=== PATIENT | male | born 1940 | race Caucasian/White ===

== ENCOUNTER 2020-10-03 14:58 | Inpatient (IN) ==
[2020-10-03] MEDS ORDERED: Calcium Gluconate 1,000 MG/10 ML VIAL IVP STA (15:01)
[2020-10-03] MEDS ORDERED: Albuterol 2.5 MG/3 ML NEBULIZER ONE (15:01)
[2020-10-03] MEDS ORDERED: Albuterol 2.5 MG/3 ML NEBULIZER IH ONE (15:02)
[2020-10-03] MEDS ORDERED: Ondansetron 4 MG/2 ML VIAL IVP ONE (15:25)
[2020-10-03] MEDS ORDERED: Calcium Gluconate 1gm/50mL BAG IVPB ONE (15:32)
[2020-10-03 15:55] LABS: Basophils % 0.4 %; Eosinophils # 0.3 K/mcL (0.0-0.6); Eosinophils % 2.4 %; Hematocrit 37.4 % (37.5-50.1); Hemoglobin 12.6 g/dL (12.9-16.9); Immature Granulocytes % 0.7 % (0-4); Lymphocytes # 1.3 K/mcL (0.6-4.6); Lymphocytes % 11.6 %; Mean Corpuscular HGB Conc 33.7 g/dL (31.6-35.5); Mean Corpuscular Hemoglobin 32.4 pg (28.0-33.3); Mean Corpuscular Volume 96.1 fL (83.0-100.0); Mean Platelet Volume 10.5 fL (9.4-12.4); Monocytes # 0.6 K/mcL (0.0-1.3); Neutrophils # 8.5 K/mcL (1.6-8.9); Platelet Count 174 K/mcL (140-400); Red Blood Count 3.89 M/mcL (4.19-5.50); Segmented Neutrophils % 78.9 %; White Blood Count 10.7 K/mcL (4.3-11.1)
[2020-10-03 16:11] LABS: BUN/Creatinine Ratio 15 (6-26); Blood Urea Nitrogen 36 mg/dL (8-23); Calcium 9.6 mg/dL (8.6-10.3); Carbon Dioxide 28 mEq/L (23-29); Chloride 105 mEq/L (98-107); Glucose 136 mg/dL (70-105); INR 1.2; Magnesium 1.9 mg/dL (1.6-2.6); Osmolality,Calculated 300 (280-300); Potassium 4.6 mEq/L (3.5-5.1); Prothrombin Time 13.4 Seconds (9.4-12.1); Sodium 140 mEq/L (136-145); Troponin I < 0.03 ng/mL (< 0.04); eGFR For African Americans 31 (> 60); eGFR For Non-African Americans 26 (> 60)
[2020-10-03] MEDS ORDERED: 0.9 % Sodium Chloride 1,000 ML IVC ONE (16:15)
[2020-10-03] MEDS ORDERED: Naloxone 0.4 MG/ML INJ IVP PRN (17:15)
[2020-10-03] MEDS ORDERED: Ondansetron 4 MG/2 ML VIAL IVP PRN (17:15)
[2020-10-03] MEDS ORDERED: Acetaminophen 325 MG TABLET PO PRN (17:15)
[2020-10-03 19:47] LABS: Hematocrit 36.3 % (37.5-50.1)
[2020-10-03 22:47] LABS: Hemoglobin 11.3 g/dL (12.9-16.9)
[2020-10-04 04:27] LABS: INR 1.2; Prothrombin Time 13.5 Seconds (9.4-12.1)
[2020-10-04 04:30] LABS: Activated Partial Thrombo Time 25.4 Seconds (26.0-36.0)
[2020-10-04 04:39] LABS: % Iron Saturation 31 % (20-55); Iron 55 mcg/dL (65-175); Transferrin 126 mg/dL (203-362)
[2020-10-04 04:46] LABS: Calcium 8.8 mg/dL (8.6-10.3); Chol/HDL Ratio 2.7 (0-4.9); Potassium 3.8 mEq/L (3.5-5.1)
[2020-10-04 04:51] LABS: Hematocrit 33.4 % (37.5-50.1); Mean Corpuscular HGB Conc 32.9 g/dL (31.6-35.5); Mean Corpuscular Hemoglobin 31.3 pg (28.0-33.3); Mean Corpuscular Volume 95.2 fL (83.0-100.0); Mean Platelet Volume 10.6 fL (9.4-12.4); Platelet Count 151 K/mcL (140-400); Red Blood Count 3.51 M/mcL (4.19-5.50); Red Cell Distribution Width 12.8 % (11.5-14.5); White Blood Count 8.7 K/mcL (4.3-11.1)
[2020-10-04 04:56] LABS: Ferritin 121 ng/mL (20-250)
[2020-10-04] MEDS ORDERED: *HR* Atropine Sulfate 1 MG/10 ML SYRINGE IVP PRN (09:31)
[2020-10-04] MEDS ORDERED: Perflutren Lipid Microsphere 1.3 ML in 0.9 % Sodium Chloride 8.7 ML IVP PRN (11:29)
[2020-10-04] MEDS ORDERED: amLODIPine 5 MG TABLET PO SCH (11:45)
[2020-10-04] MEDS: Isosorbide MONOnitrate (24 HR) 60 MG TAB.ER.24H PO SCH (13:17)
[2020-10-04] MEDS: hydrALAZINE 25 MG TABLET PO SCH ×3 (13:17→23:39)
[2020-10-04] MEDS: Aspirin Enteric Coated 81 MG Tablet PO SCH (13:17)
[2020-10-04] MEDS: Cholecalciferol (D-3) 1,000 UNIT (25MCG) TABLET PO SCH (20:10)
[2020-10-05 02:55] LABS: Hematocrit 33.2 % (37.5-50.1); Hemoglobin 11.4 g/dL (12.9-16.9); Mean Corpuscular HGB Conc 34.3 g/dL (31.6-35.5); Mean Corpuscular Hemoglobin 32.5 pg (28.0-33.3); Mean Corpuscular Volume 94.6 fL (83.0-100.0); Mean Platelet Volume 10.7 fL (9.4-12.4); Platelet Count 150 K/mcL (140-400); Red Blood Count 3.51 M/mcL (4.19-5.50); Red Cell Distribution Width 12.8 % (11.5-14.5); White Blood Count 8.6 K/mcL (4.3-11.1)
[2020-10-05 03:10] LABS: Calcium 8.4 mg/dL (8.6-10.3); Potassium 3.7 mEq/L (3.5-5.1)
[2020-10-05 03:12] LABS: Magnesium 1.6 mg/dL (1.6-2.6)
[2020-10-05 03:40] LABS: Folate 16.9 ng/mL (3.0-16.0)
[2020-10-05] MEDS: Isosorbide MONOnitrate (24 HR) 60 MG TAB.ER.24H PO SCH (08:09)
[2020-10-05] MEDS: hydrALAZINE 25 MG TABLET PO SCH ×2 (08:09→16:22)
[2020-10-05] MEDS: Cholecalciferol (D-3) 1,000 UNIT (25MCG) TABLET PO SCH ×2 (08:09→21:11)
[2020-10-05] MEDS: Aspirin Enteric Coated 81 MG Tablet PO SCH (08:09)
[2020-10-05] MEDS: NIFEdipine XL (24 HR) 60 MG TAB.ER.24 PO SCH (08:09)
[2020-10-05 12:40] LABS: Bilirubin,Urine Negative (Negative); Blood,Urine Negative (Negative); Clarity,Urine Clear (Clear); Color,Urine Light-Yellow (Yellow); Glucose,Urine (UA) Normal (Normal); Ketones,Urine Negative (Negative); Leukocyte Esterase,Urine Negative (Negative); Nitrite,Urine Negative (Negative); Protein,Urine Negative (Neg-Trace); Specific Gravity,Urine 1.016 (1.010-1.025); Urobilinogen,Urine Normal (Normal)
[2020-10-05 12:45] LABS: Protein/Creatinine Ratio,Urine 0.08 mg/mg (0.00-0.20)
[2020-10-05] MEDS: Cyanocobalamin (B-12) 1,000 MCG TABLET PO SCH (18:02)
[2020-10-05] MEDS: *HR* Heparin 5,000 UNIT/ML VIAL SQ SCH (18:02)
[2020-10-06] MEDS: hydrALAZINE 25 MG TABLET PO SCH ×2 (00:25→08:41)
[2020-10-06] MEDS: *HR* Heparin 5,000 UNIT/ML VIAL SQ SCH (05:22)
[2020-10-06 05:24] LABS: Hematocrit 36.4 % (37.5-50.1); Hemoglobin 12.6 g/dL (12.9-16.9); Mean Corpuscular HGB Conc 34.6 g/dL (31.6-35.5); Mean Corpuscular Hemoglobin 32.1 pg (28.0-33.3); Mean Corpuscular Volume 92.6 fL (83.0-100.0); Platelet Count 171 K/mcL (140-400); Red Blood Count 3.93 M/mcL (4.19-5.50); Red Cell Distribution Width 12.4 % (11.5-14.5); White Blood Count 7.3 K/mcL (4.3-11.1)
[2020-10-06 05:38] LABS: Calcium 8.7 mg/dL (8.6-10.3); Potassium 3.8 mEq/L (3.5-5.1)
[2020-10-06 05:41] LABS: Complement C3 114 mg/dL (87-200); Rheumatoid Factor < 10 IU/mL (Less than 14)
[2020-10-06] MEDS: Cholecalciferol (D-3) 1,000 UNIT (25MCG) TABLET PO SCH (08:41)
[2020-10-06] MEDS: Isosorbide MONOnitrate (24 HR) 60 MG TAB.ER.24H PO SCH (08:41)
[2020-10-06] MEDS: Cyanocobalamin (B-12) 1,000 MCG TABLET PO SCH (08:41)
[2020-10-06] MEDS: Aspirin Enteric Coated 81 MG Tablet PO SCH (08:42)
[2020-10-06] MEDS: NIFEdipine XL (24 HR) 60 MG TAB.ER.24 PO SCH (08:43)
[2020-10-06] MEDS ORDERED: Metoprolol XL (24 HR) Succ 25 MG TAB.ER.24H PO SCH (09:15)
[2020-10-06 11:42] VITALS: BP 146/63
[2020-10-06 12:43] LABS: Vitamin D 25 Hydroxy 58 ng/mL (30-80)
[2020-10-08 21:23] LABS: Lambda Qnt Free Light Chains 52.71 mg/L (5.71-26.30)
[2020-10-08 21:37] LABS: Urine Collection Volume RANDOM mL
[2020-10-09 01:40] LABS: Kappa Qnt Free Light Chains 68.27 mg/L (3.30-19.40)
== END 2020-10-06 16:10 | disposition home or self-care (01) | DRG 309 ==
LOC: 2NNU 14:58 → EMEROOARM 14:58 → SUATTDRO 17:02 → 2NNU 17:55 → SUATTDRO 10-04 10:00
PROVIDERS: ADMIT Internal Medicine; ATTEND Internal Medicine

== ENCOUNTER 2022-04-24 14:59 | Inpatient (IN) ==
[2022-04-24 17:01] LABS: Basophils # 0.1 K/mcL (0.0-0.2); Basophils % 0.4 %; Eosinophils # 0.1 K/mcL (0.0-0.6); Eosinophils % 0.9 %; Hematocrit 33.7 % (37.5-50.1); Hemoglobin 11.3 g/dL (12.9-16.9); Immature Granulocytes % 0.4 % (0-4); Lymphocytes # 1.2 K/mcL (0.6-4.6); Lymphocytes % 9.5 %; Mean Corpuscular HGB Conc 33.5 g/dL (31.6-35.5); Mean Corpuscular Hemoglobin 31.7 pg (28.0-33.3); Mean Corpuscular Volume 94.7 fL (83.0-100.0); Mean Platelet Volume 10.5 fL (9.4-12.4); Monocytes # 0.5 K/mcL (0.0-1.3); Monocytes % 4.3 %; Neutrophils # 10.3 K/mcL (1.6-8.9); Platelet Count 182 K/mcL (140-400); Red Blood Count 3.56 M/mcL (4.19-5.50); Red Cell Distribution Width 13.2 % (11.5-14.5); Segmented Neutrophils % 84.5 %; White Blood Count 12.2 K/mcL (4.3-11.1)
[2022-04-24 17:19] LABS: Albumin 3.5 g/dL (3.5-5.7); Albumin/Globulin Ratio 1.3 (1.1-2.2); Bilirubin,Direct 0.1 mg/dL (0.0-0.2); Bilirubin,Indirect 0.2 mg/dL (0.0-1.0); Bilirubin,Total 0.3 mg/dL (0.3-1.0); Calcium 13.6 mg/dL (8.6-10.3); Globulin 2.7 g/dL (2.4-3.5); Potassium 4.4 mEq/L (3.5-5.1); Total Protein 6.2 g/dL (6.4-8.9); Troponin I 0.05 ng/mL (< 0.04)
[2022-04-24] MEDS ORDERED: 0.9 % Sodium Chloride 1,000 ML IVC ONE (17:51)
[2022-04-24] MEDS ORDERED: Calcitonin-Salmon, Synthetic 400 UNIT/2 ML VIAL SQ ONE (18:00)
[2022-04-24] MEDS ORDERED: Naloxone 0.4 MG/ML INJ IVP PRN ×2 (18:16→19:32)
[2022-04-24] MEDS ORDERED: Ondansetron 4 MG/2 ML VIAL IVP PRN (18:16)
[2022-04-24] MEDS ORDERED: Acetaminophen 325 MG TABLET PO PRN (18:16)
[2022-04-24] MEDS ORDERED: 0.9 % Sodium Chloride 1,000 ML IVC SCH (20:30)
[2022-04-24] MEDS ORDERED: Valsartan 80 MG TABLET PO SCH (21:00)
[2022-04-24] MEDS: Metoprolol XL (24 HR) Succ 25 MG TAB.ER.24H PO SCH (21:02)
[2022-04-24] MEDS ORDERED: Nicotine 7 MG PATCH.TD24 TD PRN (21:56)
[2022-04-24] MEDS ORDERED: Pregabalin 25 MG CAPSULE PO ONE (22:15)
[2022-04-24 22:37] LABS: Calcium 12.5 mg/dL (8.6-10.3); Potassium 4.3 mEq/L (3.5-5.1)
[2022-04-24] MEDS ORDERED: Milk and Molasses Enema 200 ML RC ONE (22:44)
[2022-04-25] MEDS: 0.9 % Sodium Chloride 1,000 ML IVC SCH ×4 (05:17→20:09)
[2022-04-25 05:43] LABS: Basophils % 0.2 %; Eosinophils % 0.2 %; Hematocrit 29.5 % (37.5-50.1); Hemoglobin 10.1 g/dL (12.9-16.9); Immature Granulocytes % 0.3 % (0-4); Lymphocytes # 0.9 K/mcL (0.6-4.6); Lymphocytes % 8.2 %; Mean Corpuscular HGB Conc 34.2 g/dL (31.6-35.5); Mean Corpuscular Hemoglobin 31.9 pg (28.0-33.3); Mean Corpuscular Volume 93.1 fL (83.0-100.0); Mean Platelet Volume 10.5 fL (9.4-12.4); Monocytes # 0.4 K/mcL (0.0-1.3); Neutrophils # 9.3 K/mcL (1.6-8.9); Platelet Count 184 K/mcL (140-400); Red Blood Count 3.17 M/mcL (4.19-5.50); Red Cell Distribution Width 13.2 % (11.5-14.5); Segmented Neutrophils % 87.1 %; White Blood Count 10.6 K/mcL (4.3-11.1)
[2022-04-25] MEDS ORDERED: *HR* Enoxaparin 30 MG/0.3 ML SYRINGE SQ SCH (06:00)
[2022-04-25 06:02] LABS: Calcium 11.8 mg/dL (8.6-10.3); Magnesium 2.4 mg/dL (1.6-2.6); Phosphorous 4.7 mg/dL (2.7-4.5); Potassium 3.8 mEq/L (3.5-5.1)
[2022-04-25] MEDS ORDERED: *HR* Labetalol 20 MG/4 ML SYRINGE IVP ONE (06:06)
[2022-04-25] MEDS: Aspirin Enteric Coated 81 MG Tablet PO SCH (08:41)
[2022-04-25] MEDS: Cyanocobalamin (B-12) 1,000 MCG TABLET PO SCH (08:42)
[2022-04-25] MEDS ORDERED: Mirtazapine 15 MG TABLET PO SCH (09:00)
[2022-04-25] MEDS: Metoprolol XL (24 HR) Succ 25 MG TAB.ER.24H PO SCH (09:13)
[2022-04-25] MEDS: NIFEdipine XL (24 HR) 60 MG TAB.ER.24 PO SCH (09:13)
[2022-04-25] MEDS ORDERED: Calcitonin-Salmon, Synthetic 400 UNIT/2 ML VIAL SQ ONE (11:31)
[2022-04-25 11:41] LABS: Uric Acid 8.3 mg/dL (2.3-7.6)
[2022-04-25 12:59] LABS: Bilirubin,Urine Negative (Negative); Blood,Urine Negative (Negative); Clarity,Urine Clear (Clear); Color,Urine Colorless (Yellow); Glucose,Urine (UA) Normal (Normal); Ketones,Urine Negative (Negative); Leukocyte Esterase,Urine Negative (Negative); Nitrite,Urine Negative (Negative); Protein,Urine Trace mg/dL (Neg-Trace); Urobilinogen,Urine Normal (Normal)
[2022-04-25 13:52] LABS: Protein/Creatinine Ratio,Urine 0.56 mg/mg (0.00-0.20); Sodium, Urine 83.9 mEq/L
[2022-04-25] MEDS: hydrALAZINE 25 MG TABLET PO SCH (16:13)
[2022-04-26] MEDS: hydrALAZINE 25 MG TABLET PO SCH ×4 (00:06→23:55)
[2022-04-26 03:49] LABS: Hematocrit 25.7 % (37.5-50.1); Hemoglobin 8.6 g/dL (12.9-16.9); Mean Corpuscular HGB Conc 33.5 g/dL (31.6-35.5); Mean Corpuscular Hemoglobin 31.7 pg (28.0-33.3); Mean Corpuscular Volume 94.8 fL (83.0-100.0); Mean Platelet Volume 10.5 fL (9.4-12.4); Platelet Count 160 K/mcL (140-400); Red Blood Count 2.71 M/mcL (4.19-5.50); Red Cell Distribution Width 13.3 % (11.5-14.5); White Blood Count 8.8 K/mcL (4.3-11.1)
[2022-04-26 04:07] LABS: Potassium 3.6 mEq/L (3.5-5.1)
[2022-04-26 04:51] LABS: Hepatitis B Surface Antigen Nonreactive (Nonreactive)
[2022-04-26 05:22] LABS: Hepatitis C Virus Antibody Nonreactive (Nonreactive)
[2022-04-26 05:23] LABS: Hepatitis B Core IgM Nonreactive (Nonreactive)
[2022-04-26 05:27] LABS: Hepatitis A Antibody IgM Reactive (Nonreactive)
[2022-04-26] MEDS: *HR* Heparin 5,000 UNIT/ML VIAL SQ SCH ×2 (05:37→17:06)
[2022-04-26] MEDS: 0.9 % Sodium Chloride 1,000 ML IVC SCH ×2 (08:24→18:31)
[2022-04-26] MEDS: Cyanocobalamin (B-12) 1,000 MCG TABLET PO SCH (08:24)
[2022-04-26] MEDS: Aspirin Enteric Coated 81 MG Tablet PO SCH (08:24)
[2022-04-26] MEDS: NIFEdipine XL (24 HR) 60 MG TAB.ER.24 PO SCH (08:24)
[2022-04-26] MEDS: Mirtazapine 15 MG TABLET PO SCH (19:55)
[2022-04-27 01:46] LABS: Hematocrit 26.5 % (37.5-50.1); Mean Corpuscular Hemoglobin 31.8 pg (28.0-33.3); Mean Corpuscular Volume 93.6 fL (83.0-100.0); Mean Platelet Volume 10.1 fL (9.4-12.4); Platelet Count 167 K/mcL (140-400); Red Blood Count 2.83 M/mcL (4.19-5.50); Red Cell Distribution Width 13.2 % (11.5-14.5); White Blood Count 9.5 K/mcL (4.3-11.1)
[2022-04-27 02:04] LABS: Albumin 2.7 g/dL (3.5-5.7); Albumin/Globulin Ratio 1.2 (1.1-2.2); Bilirubin,Total 0.3 mg/dL (0.3-1.0); Calcium 9.5 mg/dL (8.6-10.3); Globulin 2.2 g/dL (2.4-3.5); Magnesium 2.7 mg/dL (1.6-2.6); Potassium 3.1 mEq/L (3.5-5.1); Total Protein 4.9 g/dL (6.4-8.9)
[2022-04-27] MEDS: 0.9 % Sodium Chloride 1,000 ML IVC SCH ×3 (03:15→22:57)
[2022-04-27] MEDS: *HR* Heparin 5,000 UNIT/ML VIAL SQ SCH ×2 (05:04→16:55)
[2022-04-27] MEDS: Aspirin Enteric Coated 81 MG Tablet PO SCH (08:48)
[2022-04-27] MEDS: NIFEdipine XL (24 HR) 60 MG TAB.ER.24 PO SCH (08:48)
[2022-04-27] MEDS: hydrALAZINE 25 MG TABLET PO SCH ×2 (08:48→16:55)
[2022-04-27] MEDS: Cyanocobalamin (B-12) 1,000 MCG TABLET PO SCH (08:48)
[2022-04-27] MEDS: Mirtazapine 15 MG TABLET PO SCH (20:40)
[2022-04-28] MEDS: hydrALAZINE 25 MG TABLET PO SCH ×2 (00:24→08:45)
[2022-04-28 00:43] LABS: Basophils % 0.4 %; Eosinophils # 0.4 K/mcL (0.0-0.6); Eosinophils % 3.9 %; Hematocrit 25.8 % (37.5-50.1); Hemoglobin 8.7 g/dL (12.9-16.9); Immature Granulocytes % 0.3 % (0-4); Lymphocytes # 1.2 K/mcL (0.6-4.6); Lymphocytes % 11.8 %; Mean Corpuscular HGB Conc 33.7 g/dL (31.6-35.5); Mean Corpuscular Hemoglobin 31.4 pg (28.0-33.3); Mean Corpuscular Volume 93.1 fL (83.0-100.0); Mean Platelet Volume 9.8 fL (9.4-12.4); Monocytes # 0.8 K/mcL (0.0-1.3); Monocytes % 7.9 %; Neutrophils # 7.4 K/mcL (1.6-8.9); Platelet Count 177 K/mcL (140-400); Red Blood Count 2.77 M/mcL (4.19-5.50); Red Cell Distribution Width 13.3 % (11.5-14.5); Segmented Neutrophils % 75.7 %; White Blood Count 9.8 K/mcL (4.3-11.1)
[2022-04-28 01:03] LABS: Calcium 8.8 mg/dL (8.6-10.3); Potassium 3.2 mEq/L (3.5-5.1)
[2022-04-28] MEDS: *HR* Heparin 5,000 UNIT/ML VIAL SQ SCH (04:57)
[2022-04-28] MEDS: NIFEdipine XL (24 HR) 60 MG TAB.ER.24 PO SCH (08:44)
[2022-04-28] MEDS: Aspirin Enteric Coated 81 MG Tablet PO SCH (08:44)
[2022-04-28] MEDS: Cyanocobalamin (B-12) 1,000 MCG TABLET PO SCH (08:45)
[2022-04-28 09:18] LABS: Kappa Qnt Free Light Chains 80.99 mg/L (3.30-19.40); Lambda Qnt Free Light Chains 59.79 mg/L (5.71-26.30)
[2022-04-28] MEDS: 0.9 % Sodium Chloride 1,000 ML IVC SCH (09:43)
[2022-04-28 11:19] VITALS: BP 170/61; PULSE 78; TEMP 98; O2SAT 97
== END 2022-04-28 15:30 | disposition home or self-care (01) | DRG 682 ==
LOC: EMEROOARM 14:59 → 2NENU 19:26 → SUATTDRO 19:26 → 2NENU 20:24
PROVIDERS: ADMIT Student in an Organized Health Care Education/Training Program; ATTEND Internal Medicine